=== PATIENT | male | born 1940 | race Caucasian/White ===

== ENCOUNTER 2020-11-29 17:02 | Observation (INO) | payer OTHER ==
[2020-11-29 20:29] LABS: Absolute Lymphocytes (CBC) 2.4 K/uL (0.7-4.9); Basophils % 1.3 % (0-1.3); Hematocrit 39.8 % (39.6-49.0); Lymphocytes % 26.1 % (15.3-44.8); MPV 9.9 fL (7.6-11.3); RBC Red Blood Cell Count 4.09 M/uL (4.33-5.43)
[2020-11-29] MEDS ORDERED: NA CHLORIDE 0.9% 500 ML ONE (20:43)
[2020-11-29 20:48] LABS: Bilirubin Total 0.2 mg/dL (0.2-1.0); Potassium 3.8 mmol/L (3.5-5.1)
[2020-11-29 20:49] LABS: Albumin 3.7 g/dL (3.4-5.0); Ferritin 290.8 ng/mL (26-388); Protein, Total 8.5 g/dL (6.4-8.2)
[2020-11-29 21:00] LABS: Protime INR 0.96
--- NOTE | 2020-11-29 22:36 | EDPHYS ---
Physician Documentation [facility] Name: Pedro Garcia Jr Age: 80 yrs Sex: Male : 1940 Arrival Date: 11/29/2020 Time: 17:05 Bed 24 Private MD: Felipe Lopez ED Physician Chandrakant Collazo HPI: 11/29 19:46 This 80 yrs old Male presents to ER via Wheelchair with complaints of Blood pm1 Clots. 19:46 The patient presents with pain, swelling. The complaints affect the The complaints pm1 affect the anterior aspect of left ankle. Context: resulted from an unknown cause. Onset: The symptoms/episode began/occurred 3 day(s) ago. Modifying factors: The symptoms are alleviated by nothing. the symptoms are aggravated by nothing. Associated signs and symptoms: Pertinent negatives calf tenderness, numbness, tingling, chest pain, shortness of breath. Treatment prior to arrival includes: no previous treatment. The patient has not experienced similar symptoms in the past. Patient was seen by Dr. Roa and was sent for a stat Ultrasound of left lower leg. U/S positive for DVT and sent to the ER for evaluation and treatment. Patient from [place] and traveled here by car. Historical: - Allergies: 17:18 No Known Allergies; ll1 - Home Meds: 11/30 00:04 propranolol 10 mg Oral tab 1 tab twice a day [Active]; topiramate 50 mg oral tab 1 tab jb4 2 times per day [Active]; levothyroxine 25 mcg tab 1 tab once daily [Active]; levothyroxine 150 mcg tab 1 tab once daily [Active]; primidone 250 mg Oral tab 1 tab twice a day [Active]; - PMHx: 11/29 17:18 hematomachrosis; Asthma; R hip fx; ll1 - PSHx: 17:18 Appendectomy; ll1 17:19 hip fx repair; ll1 - Immunization history:: Flu vaccine is not up to date. - Social history:: Smoking status: Patient denies any tobacco usage or history of. ROS: 19:46 Constitutional: Negative for fever, chills, and weight loss. pm1 19:46 Respiratory: Negative for shortness of breath, cough, wheezing, and pleuritic chest pain, Abdomen/GI: Negative for abdominal pain, nausea, vomiting, diarrhea, and constipation, Back: Negative for injury and pain. 19:46 Skin: Negative for injury, rash, and discoloration, Neuro: Negative for headache, weakness, numbness, tingling, and seizure. 19:46 Cardiovascular: Negative for chest pain, palpitations. 19:46 MS/extremity: Positive for pain, swelling, tenderness, of the lateral aspect of right calf, anterior aspect of left ankle and dorsum of left foot, Negative for decreased range of motion, deformity. Exam: 19:46 Constitutional: This is a well developed, well nourished patient who is awake, alert, pm1 and in no acute distress. Head/Face: Normocephalic, atraumatic. 19:46 Skin: Warm, dry with normal turgor. Normal color with no rashes, no lesions, and no evidence of cellulitis. 19:46 Cardiovascular: Rate: normal, Rhythm: regular, Pulses: no pulse deficits are appreciated. 19:46 Respiratory: Exam negative for acute changes, respiratory distress, shortness of breath. 19:46 Abdomen/GI: Inspection: abdomen appears normal, Palpation: abdomen is soft and non-tender, in all quadrants. 19:46 Musculoskeletal/extremity: Extremities: grossly normal except: noted in the lateral aspect of right calf and anterior aspect of left ankle: swelling, tenderness, Sensation intact. 19:46 Neuro: Exam negative for acute changes, Orientation: is normal, Motor: is normal, moves all fours. Vital Signs: 17:15 BP 144 / 79; Pulse 86; Resp 17; Temp 99.3; Pulse Ox 100% ; Weight 78.93 kg; Height 5 ll1 ft. 8 in. (172.72 cm); Pain 3/10; 19:16 BP 166 / 108; Pulse 76; Resp 16; Pulse Ox 99% on R/A; jb4 20:55 BP 176 / 91; Pulse 76; Resp 16; Pulse Ox 99% on R/A; jb4 22:00 BP 158 / 93; Pulse 77; Resp 17; Pulse Ox 97% on R/A; jb4 23:00 BP 139 / 100; Pulse 74; Resp 18; Pulse Ox 99% on R/A; jb4 23:30 BP 148 / 99; Pulse 78; Resp 16; Pulse Ox 99% on R/A; jb4 11/30 00:34 BP 136 / 81; Pulse 71; Resp 18; Pulse Ox 95% ; ea 11/29 17:15 Body Mass Index 26.46 (78.93 kg, 172.72 cm) ll1 MDM: 11/29 19:16 Patient medically screened. pm1 22:30 Physician consultation: Elizabeth Roa was called at 22:25, was contacted at 22:25, pm1 regarding consult, patient's condition, Admission to hospitalist for observation and she will see him in the morning. 22:31 Data reviewed: vital signs. Data interpreted: Pulse oximetry: on room air is 97 %. pm1 Interpretation: normal. Counseling: I had a detailed discussion with the patient and/or guardian regarding: the historical points, exam findings, and any diagnostic results supporting the discharge/admit diagnosis, lab results, radiology results, the need for further work-up and treatment in the hospital. 11/29 19:39 Order name: CBC with Diff; Complete Time: 20:44 pm1 11/29 19:39 Order name: Ferritin; Complete Time: 21:09 pm1 11/29 19:39 Order name: CMP; Complete Time: 21:09 pm1 11/29 19:39 Order name: TIBC; Complete Time: 21:09 pm1 11/29 19:42 Order name: PT-INR pm1 11/29 19:42 Order name: Ptt, Activated pm1 11/29 19:43 Order name: Protime (+INR); Complete Time: 21:09 EDMS 11/29 19:43 Order name: PTT, Activated Partial Thromb; Complete Time: 21:09 EDMS 11/29 19:48 Order name: Extremity Venous Uni Ltd US pm1 11/29 19:48 Order name: CT Chest For PE Angio pm1 11/29 23:41 Order name: SARS-COV-2 RT PCR; Complete Time: 00:31 EDMS 11/29 19:39 Order name: IV Saline Lock; Complete Time: 20:23 pm1 Administered Medications: 20:32 Drug: NS 0.9% 500 ml Route: IV; Rate: bolus; Site: right antecubital; jb4 21:10 CANCELLED (Physician Discretion): Lovenox (enoxaparin) 1 mg/kg Sub-Q once pm1 22:57 Drug: Eliquis (apixaban) 10 mg Route: PO; jb4 11/30 00:35 Follow up: Response: No adverse reaction ea Disposition: 00:46 Co-signature as Attending Physician, Chandrakant Collazo MD. rn Disposition: 11/29/20 22:35 Hospitalization ordered by Benitez Reina for Observation. Preliminary diagnosis is Acute embolism and thrombosis of other specified deep vein of lower extremity, bilateral. - Bed requested for Telemetry/MedSurg (observation). - Status is Observation. ea - Condition is Stable. - Problem is new. - Symptoms have improved. Signatures: Dispatcher [employer] EDCA Ynes De La Vega, RN Chandrakant Tee MD MD rn Stella, Ed, SALES ANALYST-C SALES ANALYST-Cla1 Juan José Obrien, SHIPYARD PAINTER HELPER SHIPYARD PAINTER HELPER pm1 Mehdi Navarro RN RN jb4 Micheline Hair RN RN ea Lewis, Lynsay RN RN ll1 Corrections: (The following items were deleted from the chart) 11/29 21:10 21:09 Lovenox (enoxaparin) 1 mg/kg Sub-Q once ordered. pm1 pm1 22:46 22:30 CORONAVIRUS+MR.LAB.BRZ ordered. EDCA EDCA 11/30 00:14 11/29 22:35 Hospitalization Ordered by Benitez Reina DO for Observation. Preliminary mw diagnosis is Acute embolism and thrombosis of other specified deep vein of lower extremity, bilateral. Bed requested for Telemetry/MedSurg (observation). Status is Observation. Condition is Stable. Problem is new. Symptoms have improved. pm1 11/30 00:35 00:14 11/29/2020 22:35 Hospitalization Ordered by Benitez Reina DO for Observation. ea Preliminary diagnosis is Acute embolism and thrombosis of other specified deep vein of lower extremity, bilateral. Bed requested for Telemetry/MedSurg (observation). Status is Observation. Condition is Stable. Problem is new. Symptoms have improved. mw
--- NOTE | 2020-11-29 22:36 | ER ---
Nurse's Notes [facility] Name: Pedro Garcia Jr Age: 80 yrs Sex: Male : 1940 Arrival Date: 11/29/2020 Time: 17:05 Bed 24 Private MD: Felipe Lopez Diagnosis: Acute embolism and thrombosis of other specified deep vein of lower extremity, bilateral Presentation: 11/29 17:15 Chief complaint: Patient states: L ankle pain and swelling for 3 days. Had outpatient ll1 ultrasound, has blood clot L leg. Wheeled over here for eval. Coronavirus screen: Client denies travel out of the [place] in the last 14 days. At this time, the client does not indicate any symptoms associated with coronavirus-19. Ebola Screen: Patient denies travel to an Ebola-affected area in the 21 days before illness onset. Initial Sepsis Screen: Does the patient meet any 2 criteria? No. Patient's initial sepsis screen is negative. Does the patient have a suspected source of infection? Yes: Other: blood clot L leg. Risk Assessment: Do you want to hurt yourself or someone else? Patient reports no desire to harm self or others. Onset of symptoms was November 27, 2020. 17:15 Method Of Arrival: Wheelchair ll1 17:15 Acuity: CHERRY 3 ll1 Historical: - Allergies: 17:18 No Known Allergies; ll1 - Home Meds: 11/30 00:04 propranolol 10 mg Oral tab 1 tab twice a day [Active]; topiramate 50 mg oral tab 1 tab jb4 2 times per day [Active]; levothyroxine 25 mcg tab 1 tab once daily [Active]; levothyroxine 150 mcg tab 1 tab once daily [Active]; primidone 250 mg Oral tab 1 tab twice a day [Active]; - PMHx: 11/29 17:18 hematomachrosis; Asthma; R hip fx; ll1 - PSHx: 17:18 Appendectomy; ll1 17:19 hip fx repair; ll1 - Immunization history:: Flu vaccine is not up to date. - Social history:: Smoking status: Patient denies any tobacco usage or history of. Screenin/31 00:24 Abuse screen: Denies threats or abuse. Nutritional screening: No deficits noted. ea Tuberculosis screening: No symptoms or risk factors identified. Fall Risk IV access (20 points). Assessment: 11/29 19:32 General: Appears in no apparent distress. comfortable, Behavior is calm, cooperative, jb4 appropriate for age. Pain: Complains of pain in left inner thigh and left medial ankle Pain does not radiate. Pain currently is 3 out of 10 on a pain scale. Quality of pain is described as tender. Neuro: Level of Consciousness is awake, alert, obeys commands, Oriented to person, place, time, situation. Cardiovascular: Patient's skin is warm and dry. Edema is 1+ to right midcalf and right ankle is 2+ to left midcalf and left ankle. Respiratory: Airway is patent Respiratory effort is even, unlabored, Respiratory pattern is regular, symmetrical. GI: No signs and/or symptoms were reported involving the gastrointestinal system. : No signs and/or symptoms were reported regarding the genitourinary system. EENT: No signs and/or symptoms were reported regarding the EENT system. Derm: Skin is intact, Skin is pink, warm \T\ dry. Musculoskeletal: Circulation, motion, and sensation intact. Range of motion: intact in all extremities, Swelling present in PIPPA Below the knee swelling. 21:00 Reassessment: Patient appears in no apparent distress at this time. Patient and/or jb4 family updated on plan of care and expected duration. Pain level reassessed. Patient is alert, oriented x 3, equal unlabored respirations, skin warm/dry/pink. 22:00 Reassessment: Patient appears in no apparent distress at this time. Patient and/or jb4 family updated on plan of care and expected duration. Pain level reassessed. Patient is alert, oriented x 3, equal unlabored respirations, skin warm/dry/pink. 23:00 Reassessment: Patient appears in no apparent distress at this time. Patient and/or jb4 family updated on plan of care and expected duration. Pain level reassessed. 11/30 00:00 Reassessment: Patient appears in no apparent distress at this time. Patient and/or jb4 family updated on plan of care and expected duration. Pain level reassessed. Patient is alert, oriented x 3, equal unlabored respirations, skin warm/dry/pink. 00:33 Reassessment: Patient and/or family updated on plan of care and expected duration. Pain ea level reassessed. Patient is alert, oriented x 3, equal unlabored respirations, skin warm/dry/pink. Pt admitted to second floor, report given to receiving nurse. Pt left ED via stretcher per tech. Pt tolerating well. Vital Signs: 11/29 17:15 BP 144 / 79; Pulse 86; Resp 17; Temp 99.3; Pulse Ox 100% ; Weight 78.93 kg; Height 5 ll1 ft. 8 in. (172.72 cm); Pain 3/10; 19:16 BP 166 / 108; Pulse 76; Resp 16; Pulse Ox 99% on R/A; jb4 20:55 BP 176 / 91; Pulse 76; Resp 16; Pulse Ox 99% on R/A; jb4 22:00 BP 158 / 93; Pulse 77; Resp 17; Pulse Ox 97% on R/A; jb4 23:00 BP 139 / 100; Pulse 74; Resp 18; Pulse Ox 99% on R/A; jb4 23:30 BP 148 / 99; Pulse 78; Resp 16; Pulse Ox 99% on R/A; jb4 11/30 00:34 BP 136 / 81; Pulse 71; Resp 18; Pulse Ox 95% ; ea 11/29 17:15 Body Mass Index 26.46 (78.93 kg, 172.72 cm) ll1 ED Course: 11/29 17:05 Patient arrived in ED. mr 17:06 Felipe Lopez is Private Physician. mr 17:17 Triage completed. ll1 17:19 Arm band placed on. ll1 19:12 Juan José Obrien NP is PHCP. pm1 19:12 Chandrakant Collazo MD is Attending Physician. pm1 19:13 Mehdi Navarro, DALIA is Primary Nurse. jb4 19:50 Initial lab(s) drawn, by ms, sent to lab. Inserted saline lock: 18 gauge in right jb4 antecubital area, using aseptic technique. Blood collected. 20:44 Extremity Venous Uni Ltd US In Process Unspecified. EDMS 21:14 CT Chest For PE Angio In Process Unspecified. EDMS 22:35 Benitez Reina DO is Hospitalizing Provider. pm1 11/30 00:24 No provider procedures requiring assistance completed. Patient admitted, IV remains in ea place. Administered Medications: 11/29 20:32 Drug: NS 0.9% 500 ml Route: IV; Rate: bolus; Site: right antecubital; jb4 21:10 CANCELLED (Physician Discretion): Lovenox (enoxaparin) 1 mg/kg Sub-Q once pm1 22:57 Drug: Eliquis (apixaban) 10 mg Route: PO; jb4 11/30 00:35 Follow up: Response: No adverse reaction ea Outcome: 11/29 22:35 Decision to Hospitalize by Provider. pm1 11/30 00:24 Instructed on the need for admit. ea 00:32 Admitted to Med/surg accompanied by tech, via wheelchair, room 230, with chart, Report ea called to Receiving nurse on second floor 00:32 Condition: stable 00:35 Patient left the ED. ea Signatures: Dispatcher [employer] Naheed Nicolas Patrick, BECK OPERATOR BECK OPERATOR pm1 Mehdi Navarro, RN RN jb4 Micheline Hair RN RN ea Lewis, Lynsay, RN RN ll1
[2020-11-29] MEDS ORDERED: APIXABAN 5 MG TABLET ONE (23:09)
--- NOTE | 2020-11-30 00:34 | P.HP ---
Certification for Inpatient Patient admitted to: Observation With expected LOS: <2 Midnights Patient will require the following post-hospital care: None Practitioner: I am a practitioner with admitting privileges, knowledge of patient current condition, hospital course, and medical plan of care. Services: Services provided to patient in accordance with Admission requirements found in Title 42 Section 412.3 of the Code of Federal Regulations Patient History Date of Service: 11/30/20 Primary Care Provider: Dr. Lopez Reason for admission: PIPPA LE DVT History of Present Illness: 80-year-old male with history of prostate cancer, hypertension, essential tremor, hemochromatosis presents emergency department for left lower extremity DVT. Patient reports that he has had swelling and pain to left lower extremity for the last couple of days, reports right hip fracture with repair of an August of 2020. Patient has therapeutic phlebotomy and usually 2-3 times per year, has ferritin levels drawn every 2-3 months with his juvenile counselor. Workup in the emergency department significant for hemoglobin 13.6 hematocrit 39.8 ferritin 290.8 transferrin saturation percent 24 iron 63. Ultrasound bilateral lower extremities shows DVT to bilateral lower extremities, CT PE protocol negative for pulmonary embolism. Case was discussed with hematology by ED provider who recommended observation admit overnight and initiation of anticoagulation therapy with Eliquis. Patient may require CT abdomen pelvis with contrast to rule out more proximal thrombosis given the bilateral lower extremities DVT. - Past Medical/Surgical History -: Prostate cancer -: Essential tremor -: Hemochromatosis -: Right hip fracture with repair -: Appendectomy -: Left hand Psychosocial/ Personal History: Patient is retired, lives alone, - Family History Sister -: Cancer - Social History Smoking Status: Never smoker Place of Residence: Home Review of Systems 10-point ROS is otherwise unremarkable Musculoskeletal: Other (Bilateral lower extremity edema, greater on the left. Left lower extremity pain.) Physical Examination - Physical Exam General: Alert, In no apparent distress HEENT: Atraumatic, PERRLA, Mucous membr. moist/pink Neck: Supple, 2+ carotid pulse no bruit, No LAD Respiratory: Clear to auscultation bilaterally, Normal air movement Cardiovascular: Regular rate/rhythm, Normal S1 S2, Edema (Bilateral lower extremities, greater on the left) Gastrointestinal: Normal bowel sounds, No tenderness Musculoskeletal: No tenderness Integumentary: No rashes Neurological: Normal speech, Normal strength at 5/5 x4 extr, Normal tone, Normal affect - Studies Laboratory Data (last 24 hrs) 11/29/20 19:50: PT 11.0, INR 0.96, APTT 26.5 11/29/20 19:50: Sodium 141, Potassium 3.8, BUN 20 H, Creatinine 0.96, Glucose 101, Total Bilirubin 0.2, AST 26, ALT 25, Alkaline Phosphatase 114 11/29/20 19:50: WBC 9.30, Hgb 13.6, Hct 39.8, Plt Count 254 Assessment and Plan - Plan Assessment Acute DVT to bilateral lower extremities Prostate cancer Hemochromatosis Essential tremor Plan Acute DVT to bilateral lower extremities: Continue with Eliquis 10 mg p.o. b.i.d. at this time, case was discussed with hematology by ED provider. Keep in hospital overnight for observation, may require further investigation into more proximal vessels to rule out further extension of DVT. No PE on CT PE protocol noted. Prostate cancer: Diagnosed in the last 6 months, plan was for radiation initiat ion but patient suffered right hip fracture which is delayed initiation of therapy. Hemochromatosis: Patient has ferritin draws periodically with his juvenile counselor and therapeutic phlebotomy a few times per year. Ferritin level within normal limits, iron level 63 at this time. Appears stable. Will need continued management on an outpatient basis at discharge. Essential tremor: Continue home medications. Discharge Plan: Home Plan to discharge in: 24 Hours - Advance Directives Does patient have a Living Will: Yes Does patient have a Durable POA for Healthcare: Yes - Code Status/Comfort Care Code Status Assessed: Yes (Full code) Critical Care: No Time Spent Managing Pts Care (In Minutes): 55
[2020-11-30] MEDS ORDERED: ONDANSETRON 4 MG/2 ML VIAL IV PRN (01:17)
[2020-11-30] MEDS ORDERED: ACETAMINOPHEN 500 MG TAB PO PRN (01:17)
[2020-11-30 03:33] LABS: Urine Appearance CLEAR (Clear); Urine Bilirubin NEGATIVE (Negative); Urine Blood NEGATIVE (Negative); Urine Color YELLOW (Yellow); Urine Glucose NEGATIVE (Negative); Urine Protein NEGATIVE (Negative); Urine Urobilinogen 0.2 mg/dL (0.2-1.0)
[2020-11-30 03:38] VITALS: BMI 26.4
[2020-11-30 03:49] LABS: Urine Microscopic Reflex NO UMIC
[2020-11-30 04:12] LABS: Absolute Lymphocytes (CBC) 2.2 K/uL (0.7-4.9); Basophils % 1.2 % (0-1.3); Lymphocytes % 25.9 % (15.3-44.8); MPV 9.6 fL (7.6-11.3); RBC Red Blood Cell Count 3.78 M/uL (4.33-5.43)
[2020-11-30 04:35] LABS: ALT/SGPT 21 U/L (12-78); AST/SGOT 20 U/L (15-37); Albumin 3.1 g/dL (3.4-5.0); Alkaline Phosphatase 100 U/L (45-117); BUN Blood Urea Nitrogen 17 mg/dL (7-18); Bicarbonate 30 mmol/L (21-32); Bilirubin Total 0.3 mg/dL (0.2-1.0); Glucose Level 107 mg/dL (74-106); HDL Cholesterol 51 mg/dL (40-60); LDL Cholesterol, Calculated 105 (<130); Magnesium 2.1 mg/dL (1.8-2.4); Potassium 3.8 mmol/L (3.5-5.1); Protein, Total 7.5 g/dL (6.4-8.2); Sodium Level 143 mmol/L (136-145)
[2020-11-30] MEDS ORDERED: HOME MED 1 EA UNK (Levothyroxine Sodium [Levothyroxine Sodium] 175 MCG Tablet) PO SCH (06:00)
[2020-11-30] MEDS ORDERED: LEVOTHYROXINE SOD 0.05 MG TABLET PO SCH ×2 (06:30)
[2020-11-30] MEDS ORDERED: PROPRANOLOL HCL 10 MG TAB PO SCH (09:00)
[2020-11-30] MEDS ORDERED: APIXABAN 5 MG TABLET PO SCH (09:00)
[2020-11-30] MEDS ORDERED: POTASSIUM CL SA 10 MEQ TAB PO ONE (09:00)
[2020-11-30] MEDS ORDERED: PRIMIDONE 250 MG TAB PO SCH (09:00)
[2020-11-30] MEDS ORDERED: TOPIRAMATE 25 MG TAB PO SCH (09:00)
[2020-11-30 10:56] VITALS: O2SAT 93
--- NOTE | 2020-11-30 10:59 | RAD REPORT ---
EXAM DESCRIPTION: Chest For Pe Angio 11/29/2020 9:55 PM CDT CLINICAL HISTORY: 80 years, Male, Leg swelling COMPARISON: None. TECHNIQUE: Multiple transaxial tomograms of the chest were obtained from the lung apices through the lung bases utilizing 2 mm slice thickness at 2 mm interval reconstruction after the administration o f large bolus of IV contrast for complete opacification of the pulmonary arteries. No dosing amount w as provided for interpretation. Subsequent maximum intensity projection images were generated in the coronal and sagittal plane for r eview. An individualized dose optimization technique, Automated Exposure Control, was utilized for the perfo rmed procedure. FINDINGS: Some breathing motion artifact limits the evaluation. The lungs parenchyma demonstrate minimal dependent atelectatic changes lung bases. Small left diaphra gmatic elevation. No significant masses, nodules and/or consolidations are identified. Calcified gran ulomas noted within the posterior segment of the left lower lobe The trachea mainstem bronchus demons trate to be normal. There is no significant pericardial or pleural effusions. The thoracic aorta demonstrate minimal atheromatous plaque descending portion. There is no evidence f or thoracic aortic dissection. The heart is normal in size. No evidence for right ventricular strain. There are no significant coronary artery calcification. There is no significant mediastinal and/or hilar lymphadenopathy. The axillary regions demonstrate to be clear. Pulmonary arteries demonstrate to be normal, no intraluminal defect are seen that would suggest pulmo nary embolus. The bone windows demonstrate no significant skeletal lesions. Minimal anterior spon dylosis is noted within the mid thoracic spine. The visualized portions of the upper abdomen demonstrate splenic granulomas. IMPRESSION: No CT evidence of pulmonary embolism and/or thoracic aortic dissection. Dependent atelectatic changes lung bases. Old granulomatous disease. Electronically signed by: Johnson Palmer MD 11/29/2020 10:00 PM CDT Due to temporary technical issues with the PACS/Fluency reporting system, reports are being signed by the in house radiologist without review as a courtesy to ensure prompt reporting. The interpreting r adiologist is fully responsible for the content of the report.
--- NOTE | 2020-11-30 11:23 | P.DS ---
Admission Date: 11/29/20 Discharge Date: 11/30/20 Primary Care Provider: Dr. Lopez Disposition: ROUTINE DISCHARGE Discharge Condition: GOOD Reason for Admission: PIPPA LE DVT Consultations: none Procedures: COVID: Negative CT Chest: FINDINGS: Some breathing motion artifact limits the evaluation. The lungs parenchyma demonstrate minimal dependent atelectatic changes lung bases. Small left diaphragmatic elevation. No significant masses, nodules and/or consolidations are identified. Calcified granulomas noted within the posterior segment of the left lower lobe The trachea mainstem bronchus demonstrate to be normal. There is no significant pericardial or pleural effusions. The thoracic aorta demonstrate minimal atheromatous plaque descending portion. There is no evidence for thoracic aortic dissection. The heart is normal in size. No evidence for right ventricular strain. There are no significant coronary artery calcification. There is no significant mediastinal and/or hilar lymphadenopathy. The axillary regions demonstrate to be clear. Pulmonary arteries demonstrate to be normal, no intraluminal defect are seen that would suggest pulmonary embolus. The bone windows demonstrate no significant skeletal lesions. Minimal anterior spondylosis is noted within the mid thoracic spine. The visualized portions of the upper abdomen demonstrate splenic granulomas. IMPRESSION: No CT evidence of pulmonary embolism and/or thoracic aortic dissection. Dependent atelectatic changes lung bases. Old granulomatous disease. Venous doppler: Bilateral acute lower extremity DVT Medical Problem List: Acute bilateral lower extremity DVT Prostate cancer Hemochromatosis Essential tremor Hypothyroidism Brief History of Present Illness: 80-year-old male with history of prostate cancer, hypertension, essential tremor, hemochromatosis presents emergency department for left lower extremity DVT. Patient reports that he has had swelling and pain to left lower extremity for the last couple of days, reports right hip fracture with repair of an August of 2020. Patient has therapeutic phlebotomy and usually 2-3 times per year, has ferritin levels drawn every 2-3 months with his senior sales operations manager. Workup in the emergency department significant for hemoglobin 13.6 hematocrit 39.8 ferritin 290.8 transferrin saturation percent 24 iron 63. Ultrasound bilateral lower extremities shows DVT to bilateral lower extremities, CT PE protocol negative for pulmonary embolism. Case was discussed with hematology by ED provider who recommended observation admission. Hospital Course: Patient was found to have acute bilateral lower extremity DVT. Patient with complicated history of hemochromatosis. Patient periodically gets therapeutic phlebotomies. Patient also with history of prostate cancer and right hip fracture status post repair in 2019. Patient was admitted overnight. CT chest shows no pulmonary embolism. Patient has done well. Case discussed at length with his senior sales operations manager. At discharge patient will continue with Eliquis 10 mg twice daily for 7 days then 5 mg twice daily. Patient will likely take medication indefinitely. Recommend follow-up with hematology within 1 week to follow-up his hospitalization and continue his care. Education on DVT will be provided. Patient with history of essential tremor. At discharge patient will continue with his current medication. Patient with hypothyroidism. At discharge patient will continue with his medication. Patient with history of prostate cancer. Recommend follow-up with oncology and urology to further monitor. Vital Signs/Physical Exam: Temp Pulse Resp BP Pulse Ox 97.8 F 71 16 144/73 H 97 11/30/20 08:00 11/30/20 09:00 11/30/20 08:00 11/30/20 09:00 11/30/20 08:00 General: Alert, In no apparent distress, Oriented x3, Cooperative HEENT: Atraumatic Neck: Supple Respiratory: Clear to auscultation bilaterally, Normal air movement Cardiovascular: Normal pulses, Regular rate/rhythm Gastrointestinal: Normal bowel sounds, Soft and benign, Non-distended, No tenderness, No masses, No rebound, No guarding Musculoskeletal: Other (Minimal swelling to the lower extremities bilateral.) Neurological: Normal speech, Normal strength at 5/5 x4 extr, Normal tone, Normal affect Laboratory Data at Discharge: WBC 8.50 K/uL (4.3-10.9) 11/30/20 03:37 Hgb 12.7 g/dL (13.6-17.9) L 11/30/20 03:37 Hct 37.0 % (39.6-49.0) L 11/30/20 03:37 Plt Count 226 K/uL (152-406) 11/30/20 03:37 PT 11.0 SECONDS (9.5-12.5) 11/29/20 19:50 INR 0.96 11/29/20 19:50 APTT 26.5 SECONDS (24.3-36.9) 11/29/20 19:50 Sodium 143 mmol/L (136-145) 11/30/20 03:37 Potassium 3.8 mmol/L (3.5-5.1) 11/30/20 03:37 BUN 17 mg/dL (7-18) 11/30/20 03:37 Creatinine 0.81 mg/dL (0.55-1.3) 11/30/20 03:37 Glucose 107 mg/dL (74-106) H 11/30/20 03:37 Magnesium 2.1 mg/dL (1.8-2.4) 11/30/20 03:37 Total Bilirubin 0.3 mg/dL (0.2-1.0) 11/30/20 03:37 AST 20 U/L (15-37) 11/30/20 03:37 ALT 21 U/L (12-78) 11/30/20 03:37 Alkaline Phosphatase 100 U/L (45-117) 11/30/20 03:37 Triglycerides 102 mg/dL (<150) 11/30/20 03:37 Cholesterol 176 mg/dL (<200) 11/30/20 03:37 HDL Cholesterol 51 mg/dL (40-60) 11/30/20 03:37 Cholesterol/HDL Ratio 3.45 11/30/20 03:37 Home Medications: Apixaban [Eliquis] 5 mg PO SEECOM #75 tablet 11/30/20 Levothyroxine Sodium 150 mcg PO SEECOM 11/30/20 Levothyroxine Sodium 175 mcg PO SEECOM 11/30/20 Primidone 250 mg PO BID 11/30/20 Propranolol [Inderal*] 10 mg PO BID 11/30/20 Topiramate 50 mg PO BID 11/30/20 New Medications: Apixaban [Eliquis] 5 mg PO SEECOM #75 tablet Physician Discharge Instructions: Patient was found to have acute bilateral lower extremity DVT. Patient with complicated history of hemochromatosis. Patient periodically gets therapeutic phlebotomies. Patient also with history of prostate cancer and right hip fracture status post repair in 2019. Patient was admitted overnight. CT chest shows no pulmonary embolism. Patient has done well. Case discussed at length with his senior sales operations manager. At discharge patient will continue with Eliquis 10 mg twice daily for 7 days then 5 mg twice daily. Patient will likely take medication indefinitely. Recommend follow-up with hematology within 1 week to follow-up his hospitalization and continue his care. Education on DVT will be provided. Patient with history of essential tremor. At discharge patient will continue with his current medication. Patient with hypothyroidism. At discharge patient will continue with his medication. Patient with history of prostate cancer. Recommend follow-up with oncology and urology to further monitor. Diet: AHA Activity: Ad flo Followup: Felipe Lopez MD [Primary Care Provider] - Time spent managing pt's care (in minutes): 55
--- NOTE | 2020-11-30 12:34 | RAD REPORT ---
EXAM DESCRIPTION: US - Extremity [facility]ous [facility] - 11/29/2020 8:44 pm ADDENDUM #1 THIS REPORT CONTAINS FINDINGS THAT MAY BE CRITICAL TO PATIENT CARE: Called, telephoned, verbal rep ort was given oral to Juan José Nettles nurse practitioner at 10:09 PM CDT on 11/29/2020. Electronically signed by: Johnson Palmer MD 11/30/2020 1:08 AM CDT End of Addendum EXAM DESCRIPTION: Extremity Venous [facility] 11/29/2020 10:01 PM CDT CLINICAL HISTORY: 80 years, Male, PAIN Extremity Venous [facility] COMPARISON: None. FINDINGS: Multiple grayscale images as well as duplex Doppler ultrasound of right lower extremity we re performed. There is echogenic material with lack of flow compression within the right common femoral vein, right superficial femoral vein proximal, mid distal aspect and right popliteal vein corresponding to the d eep vein thrombosis. There is normal flow within the right posterior tibial vein IMPRESSION: DEEP VEIN THROMBOSIS RIGHT COMMON FEMORAL VEIN DOWN TO THE RIGHT POPLITEAL VEIN. Electronically signed by: Johnson Palmer MD 11/29/2020 10:04 PM CDT Due to temporary technical issues with the PACS/Fluency reporting system, reports are being signed by the in house radiologist without review as a courtesy to ensure prompt reporting. The interpreting r adiologist is fully responsible for the content of the report.
[2020-11-30 13:05] VITALS: BP 128/69; TEMP 97.7
[2020-12-01] MEDS ORDERED: LEVOTHYROXINE SOD 0.075 MG TAB PO SCH (06:30)
== END 2020-11-30 14:13 | disposition home or self-care (01) ==
LOC: ER 17:02 → ERHOLD 23:33 → 2ND 11-30 00:45
PROVIDERS: ADMIT Family Medicine; ATTEND Family Medicine
DX: I82.411 Acute embolism and thrombosis of right femoral vein (principal); I82.431 Acute embolism and thrombosis of right popliteal vein; I82.402 Acute embolism and thrombosis of unspecified deep veins of left lower extremity; C61 Malignant neoplasm of prostate; Z20.822 Contact with and (suspected) exposure to COVID-19; E83.119 Hemochromatosis, unspecified; G25.0 Essential tremor; E03.9 Hypothyroidism, unspecified
CPT/HCPCS: 85025 ×2; 36415; 83735; 85610; 80061; 85730; 84443; 81003; 84439; 82728; 83540; 80053 ×2; 84466; 71275; 93971; U0003; Q9967; J7040; 99285; G0378